=== PATIENT | male | born 1960 | race Caucasian/White ===

== ENCOUNTER 2016-11-03 17:47 | Emergency (ER) | payer OTHER ==
[~2016-11-03] VITALS: Ht 180.3 cm; Wt 88.5 kg
[~2016-11-03 17:47] MED LIST: FLEXERIL10 MG PO; MOTRIN800 MG PO; PERCOCET 325 MG1 TA2 PO
--- NOTE | 2016-11-03 19:22 | RADIOLOGY REPORT ---
EXAMINATION: XR ANKLE, RIGHT CLINICAL INFORMATION: Trauma. COMPARISON: None TECHNIQUE: AP, lateral, and mortise views of the right ankle. FINDINGS: There is considerable soft tissue swelling involving the medial malleolus associated with a slightly displaced fracture of the malleolus itself. The fracture does involve the articular cortex. Ankle mortise is intact. There is no dislocation. The rest of the hindfoot is negative. IMPRESSION: Fracture medial malleolus.
--- NOTE | 2016-11-03 19:25 | ED UPPER/LOWER EXTREMITY COMPL ---
History of Present Illness General Chief Complaint: Foot or Ankle Injury Stated Complaint: R ANKLE PAIN/INJURY Source: patient Exam Limitations: no limitations Vital Signs & Intake/Output Vital Signs & Intake/Output Vital Signs Date Time Temp Pulse Resp B/P Pulse O2 O2 Flow FiO2 Ox Delivery Rate 11/03 2026 98.8 67 18 138/82 96 Room Air Room Air 11/03 1838 99.3 66 16 143/88 95 Room Air ED Intake and Output 11/04 0000 11/03 1200 Intake Total Output Total Balance Patient 195 lb Weight Allergies Coded Allergies: NO KNOWN ALLERGIES (07/23/15) Reconcile Medications Escitalopram Oxalate 10 MG TABLET 0.5 TAB PO DAILY ANXIETY/DEPRESSION ( Reported) Losartan Potassium 25 MG TABLET 1 TAB PO DAILY BP (Reported) Oxycodone HCl/Acetaminophen (Percocet 5-325 MG Tablet) 5 MG-325 MG TABLET 1 TAB PO Q4-6 PRN PAIN Triage Note: PT WAS WALKING DOWN THE STAIRS AND HIS CAT STEPPED IN FRONT OF HIM AND HE SLIPPED ON ICE. PT STATES HE FELT RIGHT ANKLE TWIST OUT OF SOCKED AND WHEN HE STOOD ON IT FELT LIKE IT WENT BACK IN. PT STATES HE CAN MOVE HIS ANKLE NOW BUT IT HURTS. Triage Nurses Notes Reviewed? yes Onset: Abrupt Duration: constant Timing: single episode today Severity: moderate Severity Numbers: 5 Method of Injury: fall HPI: Patient is a 55-year-old male who presents emergency room stating that this afternoon and getting down steps which last episode a CT he slipped and twisted his right ankle resulting in acute onset of sharp stabbing severe right ankle pain and lateral right knee pain. Denies any preceding episode of lightheaded sensation or dizziness. Denies any head strike denies any back pain or neck pain No medications given prior to arrival. (ROXANE ZAMUDIO) Past History Travel History Traveled to [place] past 21 day No Medical History Any Pertinent Medical History? see below for history Neurological: NONE EENT: NONE Cardiovascular: hypertension Respiratory: NONE Gastrointestinal: NONE Hepatic: NONE Renal: NONE Musculoskeletal: NONE Psychiatric: depression Endocrine: NONE Blood Disorders: NONE Cancer(s): NONE SCADA ENGINEER/Reproductive: NONE Surgical History Surgical History: non-contributory Psychosocial History What is your primary language Polish Tobacco Use: Current Daily Use Daily Tobacco Use Amount/Type: => 5 Cigarettes daily ETOH Use: occasional use Illicit Drug Use: denies illicit drug use Family History Hx Contributory? No (ROXANE ZAMUDIO) Review of Systems Review of Systems Constitutional: Reports: no symptoms. EENTM: Reports: no symptoms. Respiratory: Reports: no symptoms. Cardiovascular: Reports: no symptoms. Gastrointestinal/Abdominal: Reports: no symptoms. Genitourinary: Reports: no symptoms. Musculoskeletal: Reports: see HPI, joint pain. Skin: Reports: no symptoms. Neurological/Psychological: Reports: no symptoms. Hematologic/Endocrine: Reports: no symptoms. Immunological: Reports: no symptoms. All Other Systems: Reviewed and Negative (ROXANE ZAMUDIO) Physical Exam Physical Exam General Appearance: no apparent distress, alert, comfortable Neurologic/Tendon: normal sensation, normal motor functions, normal tendon functions, responds to pain, no evidence tendon injury Skin: intact, normal color, warm/dry Comments: Well-developed well-nourished person in no acute distress HEENT: Normal EENT exam, Neck: Supple, no lymphadenopathy, normal range of motion without pain or tenderness Back: Nontender, no CVA tenderness. Respiratory: Chest nontender. No respiratory distress.breath sounds clear to auscultation bilaterally Abdomen: Soft, nontender nondistended, no appreciable organomegaly. Normal bowel sounds. No ascites Extremity: No edema, no calf tenderness to palpation, normal and equal pulses. Right knee full active range of motion noted Moderate point tenderness noted to proximal fibula Right ankle noted generalized swelling, decreased active range of motion noted medial and lateral malleoli point tenderness Right foot nontender pedal pulse +2 Right leg dermatomes intact Neuro: Alert oriented x3, motor sensory normal, Skin: No appreciable rash on exposed skin, skin is warm and dry. Psych: Mood and affect is normal, memory and judgment is normal. (ROXANE ZAMUDIO) Progress Differential Diagnosis: arterial insufficiency, compartment syndrome, contusion, dislocation, DVT, fracture, gout, septic arthritis, sprain, tendon injury Plan of Care: Orders Procedure Date/time Status [id number], RIGHT 11/03 1940 Active XRY-KNEE COMPLETE RIGHT 11/03 1924 Active Patient declines pain medications when offered for his symptoms 11/03/2016 7:53:51 PM-patient after discussing with him x-ray results initially declined pain medications however at this time patient did request medications for his pain Percocet WAS ordered Discussed patient and x-ray results with orthopedic Dr. Nice who advised patient to have right lower leg and ankle posterior splint to be applied however he did not advise patient to have right knee splinting performed or knee brace He advised patient to have nonweightbearing status and follow-up in office tomorrow. I discussed x-ray results with patient in which he will comply with discharge instructions and had no questions. Patient's right lower leg was neurovascularly in place after splinting was applied. Patient had crutches on arrival Patient was provided with a CD copy of x-rays for follow-up (EFRAIN HOWARD,ROXANE) Diagnostic Imaging: Viewed by Me: Radiology Read. Radiology Impression: acute abnormality, fracture Comments: PATIENT: EVELINE MELTON PRESENT AGE: 55 PATIENT ACCOUNT NO: [id number] : 62 LOCATION: [facility] ORDERING PHYSICIAN: ROXANE HOWARD SERVICE DATE: 11/03/16 EXAM TYPE: RAD - XRY-ANKLE 3 OR MORE VIEWS R EXAMINATION: XR ANKLE, RIGHT CLINICAL INFORMATION: Trauma. COMPARISON: None TECHNIQUE: AP, lateral, and mortise views of the right ankle. FINDINGS: There is considerable soft tissue swelling involving the medial malleolus associated with a slightly displaced fracture of the malleolus itself. The fracture does involve the articular cortex. Ankle mortise is intact. There is no dislocation. The rest of the hindfoot is negative. IMPRESSION: Fracture medial malleolus. PATIENT: EVELINE MELTON PRESENT AGE: 55 PATIENT ACCOUNT NO: [id number] : 62 LOCATION: [facility] ORDERING PHYSICIAN: ROXANE HOWARD SERVICE DATE: 11/03/16 EXAM TYPE: RAD - XRY-KNEE COMPLETE RIGHT; [id number], RIGHT EXAMINATION: XRY-KNEE COMPLETE RIGHT, [id number], RIGHT CLINICAL INFORMATION: Trauma. COMPARISON: Right ankle x-rays done earlier this evening. TECHNIQUE: 2 views the proximal right leg. 4 views of the right knee FINDINGS: Proximal right leg: Associated with the medial malleolar fracture is a nondisplaced minimally spiral fracture proximal shaft right fibula. Right knee: There is no evidence of fracture or dislocation. No joint effusion is seen. The spiral fracture proximal right fibula is partially included. IMPRESSION: Spiral fracture proximal right fibula. (ROXANE ZAMUDIO) Departure Departure Disposition: HOME OR SELF CARE Condition: Stable Clinical Impression Primary Impression: Closed fracture of proximal end of right fibula Secondary Impressions: Fracture of distal end of right tibia Referrals: MARIAN REINOSO DO (PCP/Family) LOPEZ NICE MD Additional Instructions: As discussed begin to elevate your foot for swelling. Begin [id number] ibuprofen for pain and inflammation. Begin a prescription of Percocet for breakthrough pain relief. Follow-up with Dr. Nice-ORTHOPEDIC tomorrow or your established ORTHOPEDIC DOCTOR and please provide them with the CD images of the x-rays. If symptoms worsen return to emergency room. Please do not put any weight on the right leg and begin using the crutches for nonweightbearing status. If symptoms worsen return to emergency room. Please leave the splint has been applied to on her leg on at all times and to you follow up with the orthopedic doctor Departure Forms: Customer Survey General Discharge Information Prescriptions: Current Visit Scripts Oxycodone HCl/Acetaminophen (Percocet 5-325 MG Tablet) 1 TAB PO Q4-6 PRN PAIN #15 TAB (ROXANE ZAMUDIO) PA/BREAK UP WORKER Co-Sign Statement Statement: ED Attending supervision documentation- [] I saw and evaluated the patient. I have also reviewed all the pertinent lab results and diagnostic results. I agree with the findings and the plan of care as documented in the PA's/BREAK UP WORKER's documentation. [X] I have reviewed the ED Record and agree with the PA's/BREAK UP WORKER's documentation. [] Additions or exceptions (if any) to the PAs/BREAK UP WORKER's note and plan are summarized below: [] (ANGELICA GOOD,EVELINE Roth) Procedures Splinting Location: RIGHT LOWER LEG AND ANKLE Manual Alignment Performed: No Hand-Made Type: orthoglass Splint: sugar-tong, POSTERIOR ANKLE AND LEG Splint Applied By: splint applied by me Pre-Proc Neuro Vasc Exam: normal Post-Proc Neuro Vasc Exam: normal (ROXANE ZAMUDIO) Critical Care Note Critical Care Note Critical Care Time: 30-74 min (ROXANE ZAMUDIO)
--- NOTE | 2016-11-03 20:14 | RADIOLOGY REPORT ---
EXAMINATION: XRY-KNEE COMPLETE RIGHT, [id number], RIGHT CLINICAL INFORMATION: Trauma. COMPARISON: Right ankle x-rays done earlier this evening. TECHNIQUE: 2 views the proximal right leg. 4 views of the right knee FINDINGS: Proximal right leg: Associated with the medial malleolar fracture is a nondisplaced minimally spiral fracture proximal shaft right fibula. Right knee: There is no evidence of fracture or dislocation. No joint effusion is seen. The spiral fracture proximal right fibula is partially included. IMPRESSION: Spiral fracture proximal right fibula.
[2016-11-03] MEDS ORDERED: ESCITALOPRAM OX10 MG PO (20:22)
[2016-11-03] MEDS ORDERED: LOSARTAN POTASS25 M1 PO (20:22)
[2016-11-03 20:27] VITALS: BP 138/82
[2016-11-03] MEDS ORDERED: PERCOCET 5-3251 EACH PO (20:29)
== END 2016-11-03 20:31 ==
LOC: ERH 17:47
DX: S82.51XA Displaced fracture of medial malleolus of right tibia, initial encounter for closed fracture (principal); W00.0XXA Fall on same level due to ice and snow, initial encounter
CPT/HCPCS: 73562-RT; 73590-RT; 73610-RT